=== PATIENT | female | born 1970 | race Caucasian/White ===

== ENCOUNTER 2017-09-15 07:00 | Day surgery (SDC) | payer OTHER ==
[~2017-09-15] VITALS: Ht 165.1 cm; Wt 77.7 kg
[2017-09-15 07:29] VITALS: Ht 165.1 cm; Wt 77.7 kg
[2017-09-15 07:34] VITALS: BP 139/91; PULSE 67; RESP 17
[2017-09-15] MEDS ORDERED: PRAVASTATIN (07:46)
[2017-09-15] MEDS ORDERED: LIDOCAINE 4% SOLUTION 50 ML BTL ONE (07:56)
--- NOTE | 2017-09-15 08:32 | OPPN ---
Date/Time of Note Date/Time of Note DATE: 09/15/17 TIME: 08:29 Proc Note GI Procedure Date 09/15/17 Indication: diagnostic Pre-procedure Diagnosis occult gi bleeding r/o pud vs coloorectal neoplasm avm Post-procedure Diagnosis gerd gastritis duodenitis diverticulosis hemorrhoids Procedure Performed: Endoscopy, Colonoscopy Surgeon see signature line Gelatin Powder Mixer none Anesthesia Type: moderate sedation Tourniquet Time none EBL none Transfusion required none Biopsy 1: gastric Grafts/Implants none Tubes/Drains none Complication(s) none Disposition: home Procedure Description egd showed gerd gastritis duodenitis colonoscopy showed diverticulsis and hemorrhoids see dict LEI JOHNSON MD Sep 15, 2017 08:32
[2017-09-15] MEDS ORDERED: MIDAZOLAM 1 MG/ML 2 ML INJ ONE ×2 (08:40)
[2017-09-15] MEDS ORDERED: FENTAnyl 50 MCG/ML VIAL ONE (08:41)
[2017-09-15 08:55] VITALS: BP 114/78; RESP 20
--- NOTE | 2017-09-16 08:42 | GILP ---
DATE OF PROCEDURE: 09/15/2017 PROCEDURE: Esophagogastroduodenoscopy. PREOPERATIVE DIAGNOSIS: Patient presenting with history of occult gastrointestinal bleeding, rule o ut peptic ulcer disease, gastritis. POSTOPERATIVE DIAGNOSES: 1. Minimal reflux esophagitis. 2. Minimal antral gastritis. 3. Duodenitis in the bulb of the duodenum. DESCRIPTION OF PROCEDURE: After informed written consent was obtained, the patient was asked to lie on her left lateral side and 2 mg Versed and 50 mcg of fentanyl were given as intravenous anesthesi a. When the patient became somnolent, the Olympus video upper endoscope was introduced into the orophar ynx, then into the esophagus. Esophagus showed minimal erythema above the GE junction indicating mi ld reflux esophagitis. Scope at this time was advanced into the stomach. A few areas of erythema n oted in the antrum of the stomach. Rest of the stomach appeared normal. Duodenum was examined. Th e bulb of the duodenum showed evidence of erythema with an erosion. Second and third part of the du odenum appeared normal. At this time, biopsy was done from the antrum, the lesser curvature, and th e fundus to rule out H. pylori infection. Scope at this time was withdrawn. No additional abnormal ities were detected and the procedure was terminated. PLAN: Recommend Pepcid 20 mg p.o. b.i.d. Dictated By: LEI BELTRAN/MICK Conf#: [id number] DID#: [id number] CC: ;*EndCC*
--- NOTE | 2017-09-16 08:48 | GILP ---
DATE OF PROCEDURE: 09/15/2017 PROCEDURE: Colonoscopy. PREOPERATIVE DIAGNOSIS: Patient presenting with history of occult gastrointestinal bleeding, rule o ut colorectal neoplasm, arteriovenous malformation, etc. POSTOPERATIVE DIAGNOSES: 1. Moderate degree of diverticulosis, suboptimal preparation. 2. Moderate degree of internal and external hemorrhoids. DESCRIPTION OF PROCEDURE: After informed written consent was obtained, the patient was asked to lie on her left lateral side and 3 mg Versed and 75 mcg of fentanyl were given as intravenous anesthesi a. When the patient became somnolent, the Olympus video colonoscope was introduced into the rectum and scope was advanced all the way to the cecum. The entire colon appeared normal. Suboptimal preparat ion was noted. Moderate degree of diverticulosis was noted. No polyps noted. Small polyps c annot be excluded. Endoscope at this time was withdrawn. Retroflexion was performed. Minimal inte rnal hemorrhoids noted when the scope was withdrawn. Moderate degree of external hemorrhoids were n oted and the procedure was terminated. PLAN: Recommend further workup if indicated. Dictated By: LEI BELTRAN/NTS Conf#: [id number] DID#: [id number] CC: Darlene Núñez MD;*EndCC*
== END 2017-09-15 11:32 | disposition home or self-care (01) ==
LOC: GIL 07:00
PROVIDERS: ATTEND Internal Medicine Gastroenterology
DX: K92.1 Melena (principal); K57.90 Diverticulosis of intestine, part unspecified, without perforation or abscess without bleeding; K64.4 Residual hemorrhoidal skin tags; K64.8 Other hemorrhoids; K21.0 Gastro-esophageal reflux disease with esophagitis; K29.70 Gastritis, unspecified, without bleeding; K29.80 Duodenitis without bleeding
CPT/HCPCS: 43239; 45378; 84703; 88305; 88312; J2250; J3010; Z7610